=== PATIENT | female | born 1975 | race Caucasian/White ===

== ENCOUNTER 2018-07-25 20:05 | Emergency (ER) | payer OTHER ==
[~2018-07-25] VITALS: Ht 160 cm; Wt 116.1 kg
[~2018-07-25 20:05] MED LIST: LEVSIN/SL0.125 MG SL; PHENERGAN25 MG PO
== END 2018-07-25 23:23 | disposition home or self-care (01) ==
LOC: ER 20:05
DX: R07.89 Other chest pain (principal)

== ENCOUNTER 2025-07-11 20:08 | Emergency (ER) | payer OTHER ==
[~2025-07-11] VITALS: Ht 160 cm; Wt 940.3 kg
[2025-07-11] MEDS ORDERED: DEXAMETHASONE SODIUM PHOSPHATE 4 MG/ML VIAL IM STA (23:09)
[2025-07-11] MEDS ORDERED: ORPHENADRINE CITRATE 30 MG/ML AMPUL IM STA (23:09)
[2025-07-11] MEDS ORDERED: ORPHENADRINE CITRATE 30 MG/ML AMPUL ONE (23:36)
[2025-07-11] MEDS ORDERED: DEXAMETHASONE SODIUM PHOSPHATE 4 MG/ML VIAL ONE (23:36)
== END 2025-07-12 02:26 | disposition home or self-care (01) ==
LOC: ER 20:08
DX: M54.50 Low back pain, unspecified (principal); Z88.6 Allergy status to analgesic agent